=== PATIENT | female | born 1970 | race Caucasian/White ===

== ENCOUNTER 2017-03-03 06:35 | Day surgery (SDC) | payer BC ==
[~2017-03-03 06:35] MED LIST: Buffered Lidocaine 0.9% SYRIN* 5 ML/SYR SYRINGE INTRADERM ONE; Famotidine IV* 10 MG/ML 2 ML (20 mg) IV ONE; Famotidine IV* 10 MG/ML 2 ML (20 mg) ONE; ceFAZolin 2 GM PREMIX (*) 2 GM/50 ML BAG IVPB ONE
[2017-03-03] MEDS ORDERED: Lidocaine 1% INJ* 10 MG/ML 30 ML SDV ONE (06:57)
[2017-03-03] MEDS ORDERED: Dexamethasone IV* 4 MG/ML 1 ML (4 MG) ONE ×2 (06:57→08:09)
[2017-03-03] MEDS ORDERED: Bupivacaine 0.5% SDV PF* 10-30ML VIAL ONE (06:58)
[2017-03-03] MEDS ORDERED: fentaNYL* 50 MCG/ML 2 ML VIAL (100 MCG VIAL) ONE (07:39)
[2017-03-03] MEDS ORDERED: Midazolam* 1 MG/ML 2 ML VIAL (2 MG) ONE (07:39)
[2017-03-03] MEDS ORDERED: Ondansetron INJ* 2 MG/ML VIAL ONE (08:09)
[2017-03-03] MEDS ORDERED: Lidocaine 2% PF * 5 ML VIAL ONE (08:09)
[2017-03-03] MEDS ORDERED: Ketorolac INJ* 30 MG/ML 1 ML VIAL ONE (08:09)
[2017-03-03] MEDS ORDERED: Propofol* 10 MG/ML 20 ML BTL IV PUSH ONE (08:09)
[2017-03-03] MEDS ORDERED: DiMENhydriNATE IV* 50 MG/ML VIAL ONE (08:09)
[2017-03-03] MEDS ORDERED: HYDROmorphone INJ* 1 MG/ML CARPUJECT SYRINGE IV PRN (08:46)
[2017-03-03] MEDS ORDERED: Acetaminophen TAB* 325 MG PO PRN (08:46)
[2017-03-03] MEDS ORDERED: DiMENhydriNATE IV* 50 MG/ML VIAL IV PUSH PRN (08:46)
[2017-03-03] MEDS ORDERED: oxyCODONE TAB* 5 MG TAB PO PRN (08:46)
[2017-03-03] MEDS ORDERED: Naloxone* 0.4 MG/ML 1 ML VIAL IV PRN (08:46)
[2017-03-03 11:50] VITALS: BP 119/75
--- NOTE | 2017-03-04 01:05 | OP ---
DATE OF OPERATION: 03/03/17 - [facility] DATE OF : 70 SURGEON: Bulmaro Rojas DPM ANESTHESIOLOGIST: Cristel Rojo MD ANESTHESIA: General anesthesia. PRE-OP DIAGNOSES: 1. Painful bunion deformity, left foot. 2. Talar's bunion deformity, left foot. 3. Painful second left hammer toe. 4. Painful third left hammer toe. POST-OP DIAGNOSES: 1. Painful bunion deformity, left foot. 2. Talar's bunion deformity, left foot. 3. Painful second left hammer toe. 4. Painful third left hammer toe. OPERATIVE PROCEDURE: 1. Bunionectomy with closing base wedge first metatarsal osteotomy and phalangeal osteotomy of left foot. 2. Tailor's bunionectomy, left foot. 3. Fifth metatarsal osteotomy in the left foot. 4. Correction of second left hammertoe with PIPJ arthrodesis and metatarsophalangeal joint arthrotomy with extensive tendon lengthening and K- wire fixation. 5. Correction of third left hammertoe with PIPJ arthroplasty, bhanu-middle phalangectomy, and K-wire fixation. PATHOLOGY: Degenerative bone. HEMOSTASIS: Pneumatic ankle tourniquet. ESTIMATED BLOOD LOSS: Less than 20 cc. MATERIALS: Four of the 3.0 mm cannulated Garber screws, a smooth 0.06 inch K- wire, and a smooth 0.045 inch K-wire. INDICATIONS: The patient with chronic left forefoot pain and deformity with large bunion deformity, hallux interphalangeus, 2nd and 3rd hammertoe deformity. There is varus rotation of the 3rd left digit, hypertrophy to the middle phalanx laterally, and a Tailor's bunion deformity with lateral deviation of the 5th metatarsal and the left foot. The patient has pain with wearing any closed shoe, has pain when walking and opts for surgery at this time to attempt to decrease pain and improve function and comfort and ability to wear closed shoes. DESCRIPTION OF PROCEDURE: The patient was brought to the operating room, placed on the operating room table in a supine position. Next, the patient was administered general anesthesia by the anesthesia department. The left foot was then prepped and draped in the usual fashion. A local left forefoot block was performed with a 1:1 mixture of 1% lidocaine plain and 0.5% Marcaine plain. Next, the left foot was exsanguinated with an Esmarch bandage and pneumatic ankle tourniquet inflated to 250 mmHg above a well-padded left ankle. Attention was directed to the left great toe joint where a curvilinear incision was made at the dorsomedial aspect of the joint. The incision was deepened to subcutaneous tissues with care being taken to retract the neurovascular structures and cauterize any superficial bleeders as needed. Capsular incision was made for exposure of the joint in the first metatarsal. There was noted to be hyper-trophic bone at the medial aspect of the first metatarsal head. Dissection was carried into the into the first metatarsal space and a traditional lateral release was performed transecting the conjoint tendon at the adductor hallucis, lateral fibular sesamoid ligament and the portion of the lateral capsule. McGlamry elevator was needed to gently free the plantar lateral adhesions and sesamoids. This being done to allow for relaxation of lateral contractures. The medial eminence of the first metatarsal head was resected and the area was burred smooth. The surgical site was flushed with copious amounts of normal sterile saline. Next, a closing base wedge osteotomy was performed in the first metatarsal. The correction and fixation assessed with a small C-arm and 2 of the 3.0 mm cannulated Pily screws were used for fixation using standard technique. Temporary fixation removed. The osteotomy was inspected and found to be solid with no detectable motion or gaping. The screws were 2 finger tight. Again, the fixation and position was assessed with the C-arm. Next, dissection was carried to the part over the proximal phalanx with care being taken to retract the neurovascular structures and cauterize superficial bleeders as needed. After reflecting the periosteum, an angular wedge of bone was resected from distal medial to more proximal lateral with the proximal lateral hinge maintained and the wedge bone resected. The osteotomy was reduced and temporary fixation was achieved with the wires from the screw set as well as the bone clamp and after assessing the positioning and correction with the C-arm, a 3.0 mm Garber cannulated screw was placed across the osteotomy site using standard technique. Temporary fixation removed. The osteotomy was inspected and found to be solid with no detectable motion or gaping. The screw was 2 fingers tight. Again, the correction and fixation was assessed with the C-arm. A medial capsulorrhaphies were performed, resecting redundant medial capsule. The surgical site was flushed with copious amounts of normal sterile saline and while holding the hallux in rectus position, the capsular periosteal tissues were reapproximated and secured with 2-0 Vicryl. Subcutaneous tissue was reapproximated with 4-0 Vicryl and the skin was reapproximated with 5-0 nylon. Attention was then directed to the second left digit where a curvilinear incision was made to allow for exposure of the metatarso-phalangeal joint as well as the proximal interphalangeal joint. The extensor case was released and the extensor tendon lengthening was performed and the dorsal capsule was incised from the metatarsophalangeal joint. The level of the proximal interphalangeal joint, transverse tenotomy capsulotomy was performed dorsally. Collateral ligaments were incised to allow for exposure of the joint and preparation for the arthrodesis. A sagittal saw was used to resect the proximal phalangeal head and adjacent base of the middle phalanx. A power louis was used to smooth rough edges. The surgical site was flushed with copious amounts of normal sterile saline. There was still dorsal contracture at the level of the metatarsophalangeal joint and the McGlamry elevator was needed to free plantar adhesions. This being done, a smooth 0.06 inch K-wire was driven to the base of the middle phalanx to the tip of the toe, retrograded through the proximal phalanx and across the metatarsophalangeal joint while holding the toe in a corrected position. The fixation and positioning was assessed with a C-arm. The wire was bent, cut, and capped. The surgical site was again flushed with copious amounts of normal sterile saline. The capsular and tendons were reapproximated with 4-0 Vicryl. Subcutaneous tissues were reapproximated with 4-0 Vicryl. Skin was closed with 5-0 nylon. Attention was directed to the third left digit where a linear incision was made as well as a lateral semi-elliptical incision to allow for resection of redundant skin and soft tissue. Resultant skin wedges were resected and dissection was carried out with care being taken to retract the neurovascular structures and cauterize superficial bleeders as needed. Next, the transverse tenotomy capsulotomy was performed at the proximal interphalangeal joint and the collateral ligaments were incised to allow for exposure of the proximal phalangeal head and the lateral aspect of the middle phalanx. Using sagittal saw, the proximal phalangeal head was resected as well as the lateral third of the middle phalanx to debulk this portion of the digit. Power louis was used to smooth rough edges. The surgical site was flushed with copious amounts of normal sterile saline. Next using a smooth 0.045 inch K -wire, it was driven through the base of the middle phalanx to the tip of the toe, retrograded back through into the proximal phalanx holding the digit in a corrected position with care being taken to ensure the tip of wire did not penetrate the metatarsophalangeal joint. The wire was bent, cut, and capped. Surgical site was flushed with copious amounts of normal sterile saline and the tendinous and capsular tissues were secured with 4-0 Vicryl. Subcutaneous tissues were reapproximated with 4-0 Vicryl and the skin was closed with 5-0 nylon. Again, the positioning and fixation was assessed with the C- arm. Attention was then directed to the lateral aspect of the 5th metatarsophalangeal joint where a curvilinear incision was made. Incision was deepened to the subcutaneous tissues with care being taken to retract the neurovascular structures and to cauterize the superficial bleeders as needed. The linear periosteal and capsular incision was made to allow for exposure of the 5th metatarsophalangeal joint. There was noted to be hypertrophic bone lateral to the 5th metatarsal head. Dissection was carried more proximally in flexion of the periosteum in preparation for a closing base wedge osteotomy of the 5th metatarsal. A closing base wedge osteotomy was performed with a sagittal saw with wedge of bone resected and the ostomy was reduced and temporary fixation was achieved with a bone clamp and wire from the screw set. The positioning was assessed with the C-arm and using standard technique, a 3.0 mm cannulated Pily screw was placed across the osteotomy site. Temporary fixation was removed. The osteotomy was inspected and found to be solid with no detectable motion or gaping. The correction and fixation was assessed with the C-arm. Screws checked again and found to be 2 fingers tight. Power louis was used to smooth any rough edges. Surgical site was flushed with copious amounts of normal sterile saline. The periosteum and capsular tissues were reapproximated with 4-0 Vicryl, subcutaneous tissues were reapproximated with 4- 0 Vicryl and skin was closed with 5-0 nylon. Next, 12 mg total of dexamethasone phosphate was infiltrated about the surgical sites. Each incision was then dressed with Xeroform gauze, 4x4 gauze, Major, a light Coban wrap. The pneumatic ankle tourniquet was deflated about the left ankle and for few moments, hyperemic response was notable on all 5 digits of the patient's left foot and the dressing was further secured with Coban wrap. Having tolerated the procedures and anesthesia well, the patient was transported via cart from the operating room to the Recovery in satisfactory condition with capillary refill less than 3 seconds to all digits. [id number]/CPS #: [id number] MTDD
--- NOTE | 2017-03-04 11:04 | RAD ---
INDICATION: Left foot surgery. COMPARISON: There are no prior studies available for comparison. TECHNIQUE: 39 seconds of intermittent fluoroscopic guidance were provided and 5 spot films of the left foot were obtained in the operating room. FINDINGS: The films demonstrates an osteotomy of the proximal first metatarsal transfixed with 2 surgical screws and an osteotomy of the first proximal phalanx transfixed with a single screw. There are K wires which project over the second and third toes. IMPRESSION: INTRAOPERATIVE CONTROL FILMS. CPT II Codes: 6045F
== END 2017-03-03 11:51 | disposition home or self-care (01) ==
LOC: OREAST 06:35
PROVIDERS: ATTEND Podiatrist Foot Surgery
DX: M21.612 Bunion of left foot (principal); M21.622 Bunionette of left foot; M20.42 Other hammer toe(s) (acquired), left foot; E55.9 Vitamin D deficiency, unspecified; M19.90 Unspecified osteoarthritis, unspecified site; J30.2 Other seasonal allergic rhinitis
CPT/HCPCS: 76000; 81025; C1713; C1776; J0690; J1100; J1240; J1885; J2250; J2405; J2704; J3010

== ENCOUNTER 2018-02-02 07:34 | Day surgery (SDC) | payer BC ==
[~2018-02-02 07:34] MED LIST changes: +Dexamethasone IV* 4 MG/ML 1 ML (4 MG) IV SLOW PU ONE; +Dexamethasone IV* 4 MG/ML 1 ML (4 MG) ONE; +Lactated Ringers 1000 ML Bag* 1,000 ML IV SCH; -ceFAZolin 2 GM PREMIX (*) 2 GM/50 ML BAG IVPB ONE; +ceFAZolin 2 GM PREMIX in ORs 2 GM/50 ML BAG IVPB ONE
[2018-02-02] MEDS ORDERED: Lidocaine 2% PF * 5 ML VIAL ONE (08:44)
[2018-02-02] MEDS ORDERED: Propofol* 10 MG/ML 20 ML BTL ONE ×2 (08:44→09:55)
[2018-02-02] MEDS ORDERED: Midazolam* 1 MG/ML 5 ML VIAL (5 MG) ONE (08:44)
[2018-02-02] MEDS ORDERED: fentaNYL* 50 MCG/ML 2 ML VIAL (100 MCG VIAL) ONE ×2 (08:44→09:35)
[2018-02-02] MEDS ORDERED: HYDROcodone/ACETAMIN 5-325 MG* 1 TAB PO PRN (08:55)
[2018-02-02] MEDS ORDERED: Naloxone* 0.4 MG/ML 1 ML VIAL IV PRN (08:55)
[2018-02-02] MEDS ORDERED: fentaNYL* 50 MCG/ML 2 ML VIAL (100 MCG VIAL) IV PRN (08:55)
[2018-02-02] MEDS ORDERED: DiMENhydriNATE IV* 50 MG/ML VIAL IV PUSH PRN (08:55)
[2018-02-02] MEDS ORDERED: Ketorolac INJ* 30 MG/ML 1 ML VIAL IV PRN (08:55)
[2018-02-02] MEDS ORDERED: oxyCODONE/Acetamin 5/325 MG* TAB PO PRN (08:55)
[2018-02-02] MEDS ORDERED: Lidocaine 1% INJ* 10 MG/ML 30 ML SDV ONE (09:00)
[2018-02-02] MEDS ORDERED: Bupivacaine 0.5% PF 10 ML VIAL INJ ONE (09:00)
[2018-02-02] MEDS ORDERED: Midazolam* 1 MG/ML 2 ML VIAL (2 MG) ONE (09:38)
[2018-02-02] MEDS ORDERED: Ondansetron INJ* 2 MG/ML VIAL ONE (10:08)
[2018-02-02 11:50] VITALS: BP 126/82
--- NOTE | 2018-02-02 13:48 | OP ---
OPERATIVE REPORT: DATE OF OPERATION: 02/02/18 - [facility] DATE OF : 70 SURGEON: Bulmaro Rojas DPM PROCESS ENG: None. ANESTHESIOLOGIST: Donna Samuels MD ANESTHESIA: MAC with local. PRE-OP DIAGNOSES: 1. Chronic pain and recurrent second left hammertoe with contracture of the extensor tendon. 2. 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 POST-OP DIAGNOSES: 1. Chronic pain and recurrent second left hammertoe with contracture of the extensor tendon. 2. 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 OPERATIVE PROCEDURE: 1. Correction and revision of second left hammertoe with extensor tendon lengthening procedure and capsulotomy second left digit. 2. Correction and revision of third left hammertoe with arthrodesis using PHALINX implant at the proximal interphalangeal joint third left toe and extensor tendon lengthening and capsulotomy third left toe. PATHOLOGY: Resected degenerative bone from the PIPJ of the third left toe. MATERIALS: A size medium PHALINX [employer] hammertoe implant. INDICATIONS: The patient had previous surgical correction of second and third left hammertoes. Progressively, she has developed some contracture and adhesions dorsally of the second metatarsophalangeal joint creating some recurrent deformity. Third left toe also had attempted arthrodesis with nonunion with some rotation medially causing pain at the plantar lateral and medial aspect of the third left toe. There is also some contracture at the metatarsophalangeal joint as well. The patient opts for surgical revision at this time to decrease the deformity, decrease the pain, and attempt to improve her function. DESCRIPTION OF PROCEDURE: The patient was brought to the operating room, placed on the operating table in supine position. The anesthesia department administered IV sedation and peripheral nerve block was performed about the left foot with a 1:1 mixture of 1% lidocaine plain and 0.5% Marcaine plain. The left foot was then prepped and draped in the usual fashion. The left foot was exsanguinated with an Esmarch bandage and pneumatic ankle tourniquet was inflated to 250 mmHg above a well-padded left ankle. Attention was directed to the dorsal aspect of the third left toe where a linear incision was made using previous surgical incision. These soft tissue planes were reestablished with care being taken to retract neurovascular structures and cauterize the superficial bleeders as needed. At the level of the proximal interphalangeal joint, this was incised transversally. There was noted to be some fibrous and scar tissue present at the base of the middle phalanx as well as the distal aspect of the proximal phalanx where a small amount was resected with a sagittal saw. A small side-cutting Yohana bur was used to resect the hypertrophic bone at the plantar lateral aspect of middle phalanx. The surgical site was flushed with copious amounts of normal sterile saline. Next, using standard technique with fluoroscopic guidance, a size medium PHALINX hammertoe implant was implanted in the proximal phalangeal joint and the apposing bones were reapproximated and again assessed by direct visualization as well as with a C-arm. It was determined there was still some contracture proximally at the metatarsophalangeal joint, so the extensor tendon was incised longitudinally and a Z tendon lengthening was performed and a portion of the medial capsule was also needed to be released. The surgical site was flushed with copious amounts of normal sterile saline. The tendon and capsular structures were reapproximated with 4-0 Vicryl. Subcutaneous tissues were reapproximated with 4-0 Vicryl and skin was closed with 5-0 nylon. The second toe was noted to have dorsal medial contracture, and using a curvilinear incision essentially following the previous incision, the soft tissue planes were also reestablished and neurovascular structures were gently retracted and superficial bleeders were cauterized as needed. The deformity was primarily at the metatarsophalangeal joint with adhesions and contracture of the extensor tendon, which was incised longitudinally and Z extensor tendon lengthening was performed and a portion of the dorsal medial capsule was needed to be released and this allowed for reduction of the contracture. The surgical site was flushed with copious amounts of normal sterile saline and the tendinous and capsular structures were reapproximated and secured with 4-0 Vicryl. Subcutaneous tissues were reapproximated with 4-0 Vicryl. The skin was closed with 5-0 nylon. Both incisions were closed with 5-0 nylon. Next, Mastisol was applied to the skin and large Steri-Strips were used to externally splint and maintain corrected position during healing. This was applied in a manner to ensure there was no constriction or tourniquet effect. The incisions were dressed with Xeroform gauze. Further splinting and dressing was applied with 4x4 gauze, Major and a light Coban wrap. The pneumatic ankle tourniquet was deflated about the left ankle and hyperemic response was noted about digits 1, 4 , and 5, and after a few moments, cap refill returned and pink in color to toes 2 and 3. Having appeared to have tolerated the procedures and anesthesia well, the patient was transported via cart from the operating room to Recovery in satisfactory condition with capillary refill less than 5 seconds to all digits of the left foot. [id number]/CPS #: [id number] MTDD
== END 2018-02-02 11:54 | disposition home or self-care (01) ==
LOC: OREAST 07:34
PROVIDERS: ATTEND Podiatrist Foot Surgery
DX: M96.0 Pseudarthrosis after fusion or arthrodesis (principal); M20.42 Other hammer toe(s) (acquired), left foot; I73.00 Raynaud's syndrome without gangrene
CPT/HCPCS: 76000; 81025; 88304; 88311; J0690; J1100; J2250; J2405; J2704; J3010

== ENCOUNTER 2019-03-21 07:55 | Day surgery (SDC) | payer BC ==
[~2019-03-21 07:55] MED LIST changes: -Buffered Lidocaine 0.9% SYRIN* 5 ML/SYR SYRINGE INTRADERM ONE; +Buffered Lidocaine 1% SYRIN* 1 ML/SYRINGE INTRADERM ONE; +Bupivacaine 0.5% SDV PF* 30ML VIAL ONE; -Dexamethasone IV* 4 MG/ML 1 ML (4 MG) IV SLOW PU ONE; +Lidocaine 1% INJ* 10 MG/ML 30 ML SDV ONE; -ceFAZolin 2 GM PREMIX in ORs 2 GM/50 ML BAG IVPB ONE; +ceFAZolin 2 GM PREMIX in ORs 2 GM/50 ML BAG ONE
[2019-03-21] MEDS ORDERED: Midazolam* 1 MG/ML 5 ML VIAL (5 MG) ONE (08:54)
[2019-03-21] MEDS ORDERED: fentaNYL* 50 MCG/ML 2 ML VIAL (100 MCG VIAL) ONE (09:20)
[2019-03-21] MEDS ORDERED: Ketorolac INJ* 30 MG/ML 1 ML VIAL ONE (09:30)
[2019-03-21] MEDS ORDERED: Dexamethasone IV* 4 MG/ML 1 ML (4 MG) ONE ×2 (09:30→10:00)
[2019-03-21] MEDS ORDERED: DiMENhydriNATE IV* 50 MG/ML VIAL ONE (09:30)
[2019-03-21] MEDS ORDERED: Lidocaine 2% PF * 5 ML VIAL ONE (09:30)
[2019-03-21] MEDS ORDERED: Propofol* 10 MG/ML 20 ML BTL ONE ×2 (09:30→11:15)
[2019-03-21] MEDS ORDERED: Ondansetron INJ* 2 MG/ML VIAL ONE (09:30)
[2019-03-21] MEDS ORDERED: DiMENhydriNATE IV* 50 MG/ML VIAL IV PUSH PRN (12:04)
[2019-03-21] MEDS ORDERED: oxyCODONE TAB* 5 MG TAB PO PRN (12:04)
[2019-03-21] MEDS ORDERED: Naloxone* 0.4 MG/ML 1 ML VIAL IV PRN (12:04)
[2019-03-21] MEDS ORDERED: Acetaminophen TAB* 325 MG PO PRN (12:04)
[2019-03-21 13:51] VITALS: BP 128/75
--- NOTE | 2019-03-22 00:12 | OP ---
DATE OF OPERATION: 03/21/19 - [facility] DATE OF : 70 SURGEON: Bulmaro Rojas DPM RETURN TO FACTORY CLERK: None. ANESTHESIA: General. PRE-OP DIAGNOSES: 1. Painful severe bunion deformity, right foot. 2. Painful tailor's bunion, right foot. 3. Painful second right hammertoe. POST-OP DIAGNOSES: 1. Painful severe bunion deformity, right foot. 2. Painful tailor's bunion, right foot. 3. Painful second right hammertoe. OPERATIVE PROCEDURE: 1. Bunionectomy with closing base wedge first metatarsal osteotomy and angular phalangeal osteotomy on the right foot. 2. Tailor's bunionectomy with closing base wedge fifth metatarsal osteotomy on the right foot. 3. Correction of second right hammertoe with PIPJ arthroplasty and MTPJ arthrotomy with extensor tendon lengthening procedure, second digit, right foot. PATHOLOGY: Degenerative bone. HEMOSTASIS: Pneumatic ankle tourniquet at 250 mmHg. ESTIMATED BLOOD LOSS: Less than 30 cc. MATERIALS: Four of the 3.0 mm cannulated Phoenix screws. INDICATIONS: The patient with chronic right forefoot pain and deformity with large bunion, second hammertoe, and tailor's bunion causing pain with walking, wearing shoes. She opts for surgery at this time to attempt to decrease the pain and improve her function and ability to wear shoes without pain. DESCRIPTION OF PROCEDURE: The patient was brought to the operating room and placed on the operating table in supine position. General anesthesia was administered by the anesthesia department and the right foot was then prepped and draped in usual fashion. Local anesthetic block was injected with a 1:1 mixture of 1% lidocaine plain and 0.5% Marcaine plain. The right foot was then exsanguinated with an Esmarch bandage and pneumatic ankle tourniquet was inflated to 250 mmHg about a well-padded right ankle. Attention was directed to the dorsomedial aspect of the right great toe joint where a curvilinear incision was made. The incision was deepened through the subcutaneous tissues with care being taken to retract neurovascular structures and cauterize superficial bleeders as needed. An inverted L-capsular incision was made to allow for exposure of the first metatarsophalangeal joint and first metatarsal. The periosteal and capsular tissues were reflected. The hypertrophic medial aspect of the first metatarsal head was resected with a sagittal saw and burred smooth. The surgical site was flushed with copious amounts of normal sterile saline. Next, the McGlamry elevator was needed to free plantar lateral adhesions of the sesamoid apparatus. Dissection was carried into the first metatarsal space where the extensor hallucis brevis tendon was identified and transected and a traditional lateral release was performed releasing the lateral conjoint tendon of the adductor hallucis, portion of the lateral capsule and lateral fibular sesamoid ligament. This allowed for relaxation of all lateral contractures. Next, a closing base wedge osteotomy was performed at the base of the first metatarsal. Temporary fixation was achieved with a bone clamp and then wires were inserted from the screw set and again the position and correction was assessed with a C-arm and using standard technique, 2 of the 3.0 mm cannulated screws were inserted and washers were also used to reduce potential pull through. Next, it was determined that a proximal phalangeal osteotomy was needed to correct the hallux interphalangeus and dissection was carried further distal medially with periosteal tissues reflected to allow for exposure of the proximal phalanx. Next, an angular wedge of bone was resected with the proximal lateral hinge maintained. The wedge was resected and the osteotomy was reduced. Temporary fixation was achieved with a bone clamp and the positioning assessment was checked with a C- arm. A wire from the screw set was implanted and using standard technique a 3.0 mm cannulated Phoenix screw was placed across the osteotomy site. The temporary fixation was removed and the final correction and positioning was assessed with a C- arm and the osteotomies were both inspected and found to be solid with no detectable motion or gapping. The surgical site was flushed with copious amounts of normal sterile saline. Portion of the redundant medial capsule was resected. The capsular and periosteal tissues were reapproximated and secured with 2-0 Vicryl. This was done while holding the hallux in a rectus position. The subcutaneous tissues were reapproximated and secured with 4-0 Vicryl and skin was closed with 5-0 nylon. Attention was then directed to the dorsolateral aspect of the fifth metatarsophalangeal joint where a curvilinear incision was made over the fifth metatarsal. The incision was deepened through the subcutaneous tissues with care being taken to retract neurovascular structures and cauterize superficial bleeders as needed. Dissection was carried down through the periosteal and capsular tissues, which were incised linearly to allow for exposure of the joint and distal first metatarsal as well. The lateral hypertrophic eminence of the fifth metatarsal was resected with a sagittal saw and a power louis was used to smooth the rough edges. The surgical site was flushed with copious amounts of normal sterile saline. Next, a closing base wedge osteotomy was performed and the proximal fifth metatarsal reduced, temporary fixation with a bone clamp and then position assessed with a C-arm, temporary fixation was also achieved with a wire from the screw set and again after assessing with a C-arm, using standard technique a 3.0 mm cannulated screw was placed across the osteotomy site. The temporary fixation was removed. The correction and fixation was assessed with a C-arm. The osteotomy was inspected and found to be solid with no detectable motion or gapping. The surgical site was flushed with copious amounts of normal sterile saline. The periosteal and capsular tissues were reapproximated and secured with 4-0 Vicryl and the subcutaneous tissues were reapproximated with 4-0 Vicryl and skin was closed with 5-0 nylon. Next, attention was directed to the second digit of the proximal interphalangeal joint. Two conjoining semi-elliptical incisions were made and the resultant small wedge of skin was resected. The tendon and capsular structures were incised and the proximal phalangeal head was exposed and resected with a sagittal saw and a power louis was used to smooth rough edges. The surgical site was flushed with copious amounts of normal sterile saline. At the level of the metatarsophalangeal joint, an incision was made in a curvilinear fashion. Dissection was carried down through the subcutaneous tissues with care being taken to retract neurovascular structures and cauterize superficial bleeders as needed. The extensor tendon was lengthened in a Z tendon lengthening type procedure and the dorsal capsular structures were incised and the McGlamry elevator was needed to free plantar adhesions of the joint. The patient made it clear that she did not want a percutaneous K-wire, so would be secured with splinting from externally. The surgical site was flushed with copious amounts of normal sterile saline. The capsular and tendon structures were reapproximated and secured with 4-0 Vicryl, subcutaneous tissues were reapproximated with 4-0 Vicryl, and skin was closed with 5-0 nylon. At the level of the proximal interphalangeal joint, the extensor tendon was reapproximated and secured with 4-0 Vicryl and the skin was closed with 5-0 nylon. Next, Mastisol with half-inch Steri-Strips were used to stabilize the toe longitudinally as well as reduce the contracture at the metatarsophalangeal joint. 12 mg of dexamethasone phosphate was infiltrated in total about the surgical sites and each incision was dressed with Xeroform gauze and a sterile mildly compressive dressing was applied with 4x4 gauze, Major, and a light Coban wrap. The pneumatic ankle tourniquet had been deflated and capillary refill was less than 3 seconds to all digits and a prompt hyperemic response was noted upon release of the tourniquet as well. Having appeared to tolerate the procedure and anesthesia well, the patient was transported via cart from the operating room to Recovery in satisfactory condition with capillary refill less than 3 seconds to all digits of the right foot. [id number]/[facility] #: [id number] AARTI
== END 2019-03-21 13:49 | disposition home or self-care (01) ==
LOC: OREAST 07:55
PROVIDERS: ATTEND Podiatrist Foot Surgery
DX: M21.611 Bunion of right foot (principal); M21.621 Bunionette of right foot; M20.41 Other hammer toe(s) (acquired), right foot; R53.82 Chronic fatigue, unspecified; F41.9 Anxiety disorder, unspecified
CPT/HCPCS: 76000; 88304; 88311; C1713; C1776; J0690; J1100; J1240; J1885; J2250; J2405; J2704; J3010; J3490